=== PATIENT | female | born 1960 | race Caucasian/White ===

== ENCOUNTER 2016-06-18 19:25 | Observation (INO) | payer OTHER ==
[~2016-06-18] VITALS: Ht 170.2 cm; Wt 65.0 kg
[2016-06-18 20:12] LABS: HEMATOCRIT 31.1 % (36.0-46.0); MCH 30.3 PG (29.0-34.0); MCHC 33.4 G/DL (30.0-36.0); MCV 90.7 FL (83-99); MEAN PLAT.VOLUME 10.4 uM^3 (9.5-12.4); PLATELET COUNT 314 K/uL (156-360); RBC DIS.WIDTH-CV 13.3 % (11.8-14.6); RBC DIS.WIDTH-SD 44.4 % (39-53); RED BLOOD COUNT 3.43 M/uL (3.80-5.20); WHITE BLOOD COUNT 11.2 K/uL (4.1-10.2)
[2016-06-18 20:28] LABS: CHLORIDE 104 mEq/L (99-109); POTASSIUM 2.7 mEq/L (3.7-5.4); SODIUM 138 mEq/L (136-147)
[2016-06-18 20:30] LABS: GLUCOSE 100 mg/dL (70-99)
[2016-06-18 20:31] LABS: ANION GAP 12 MEQ/L (2-14)
[2016-06-18 20:33] LABS: GFR ESTIMATE (CALCULATED) > 59 mL/min/
[2016-06-18 20:34] LABS: UREA NITROGEN (BUN) 5 mg/dL (9-23)
[2016-06-18 20:36] LABS: TROP-I INTERPRETATION NEGATIVE; TROPONIN-I < 0.01 ng/mL (0.0-0.30)
[2016-06-18] MEDS ORDERED: PRINIVIL10 MG PO (21:19)
[2016-06-18] MEDS ORDERED: OMEPRAZOLE40 M1 PO (21:20)
[2016-06-18] MEDS ORDERED: TOPIRAMATE25 MG PO (21:20)
[2016-06-18] MEDS ORDERED: LIPITOR80 MG PO (21:20)
[2016-06-18] MEDS ORDERED: PLAVIX75 MG PO (21:20)
[2016-06-18] MEDS ORDERED: RANITIDINE HCL150 MG PO (21:20)
[2016-06-18] MEDS ORDERED: LEXAPRO20 MG PO (21:21)
[2016-06-18] MEDS ORDERED: LO-DOSE ASPIRIN81 M2 PO (21:21)
[2016-06-19 01:04] VITALS: BP 156/71
[2016-06-19 03:38] LABS: TROP-I INTERPRETATION NEGATIVE; TROPONIN-I < 0.01 ng/mL (0.0-0.30)
[2016-06-19 04:24] VITALS: BP 112/70
[2016-06-19 06:07] LABS: HEMATOCRIT 28.7 % (36.0-46.0); MCH 30.3 PG (29.0-34.0); MCHC 32.8 G/DL (30.0-36.0); MCV 92.6 FL (83-99); MEAN PLAT.VOLUME 10.8 uM^3 (9.5-12.4); PLATELET COUNT 285 K/uL (156-360); RBC DIS.WIDTH-CV 13.5 % (11.8-14.6); RBC DIS.WIDTH-SD 45.4 % (39-53); WHITE BLOOD COUNT 8.1 K/uL (4.1-10.2)
[2016-06-19 06:28] LABS: ALKALINE PHOSPHATASE 88 IU/L (3-129); ANION GAP 12 MEQ/L (2-14); CHLORIDE 109 MEQ/L (99-109); GFR ESTIMATE (CALCULATED) > 59 mL/min/; GLUCOSE 88 mg/dL (70-99); HDL CHOLESTEROL 33 MG/DL (Desirable>=50); LDL CHOLESTEROL 42 mg/dL (Desirable<100); NON-HDL CHOLESTEROL 59 mg/dL (Desirable<160); POTASSIUM 2.8 MEQ/L (3.7-5.4); SAMPLE HEMOLYSIS CHECK 0; SAMPLE ICTERIC CHECK 0; SAMPLE LIPEMIA CHECK 0; SODIUM 143 MEQ/L (136-147); TOTAL BILIRUBIN 0.4 MG/DL (0.0-1.0); TOTAL CHOLESTEROL 92 mg/dL (Desirable<200); TRIGLYCERIDES 83 MG/DL (Normal: <150); UREA NITROGEN (BUN) 4 mg/dL (9-23)
[2016-06-19 07:49] VITALS: BP 98/53
[2016-06-19 09:27] LABS: TROP-I INTERPRETATION NEGATIVE; TROPONIN-I < 0.01 ng/mL (0.0-0.30)
[2016-06-19 11:10] VITALS: BP 115/67
[2016-06-19] MEDS ORDERED: NICOTINE PATCH1 EAC2 TD (15:35)
[2016-06-19] MEDS ORDERED: DOXYCYCLINE HY100 M3 PO (15:35)
[2016-06-19] MEDS ORDERED: POTASSIUM20 MEQ/11 PO (15:37)
[2016-06-19 15:39] VITALS: BP 146/90
[2016-06-19] MEDS ORDERED: TESSALON PERLE100 MG PO (15:40)
[2016-06-19 16:30] LABS: ANION GAP 10 MEQ/L (2-14); CHLORIDE 111 MEQ/L (99-109); GFR ESTIMATE (CALCULATED) > 59 mL/min/; GLUCOSE 82 mg/dL (70-99); POTASSIUM 3.1 MEQ/L (3.7-5.4); SAMPLE HEMOLYSIS CHECK 0; SAMPLE ICTERIC CHECK 0; SAMPLE LIPEMIA CHECK 0; SODIUM 142 MEQ/L (136-147); UREA NITROGEN (BUN) 4 mg/dL (9-23)
[2016-06-20 06:56] LABS: Estimated Average Glucose 114 mg/dL (70-123); HEMOGLOBIN A1c (GLYCOHEMOGLOB) 5.6 % HGB (Below 5.7)
== END 2016-06-19 19:19 | disposition home or self-care (01) ==
LOC: EME 19:25 → EDOF 23:00 → 5WEST 23:53
PROVIDERS: Internal Medicine; Nurse Practitioner Adult Health
DX: R07.89 Other chest pain (principal); J20.9 Acute bronchitis, unspecified; E87.6 Hypokalemia; R11.2 Nausea with vomiting, unspecified; R19.7 Diarrhea, unspecified; I27.2 Other secondary pulmonary hypertension; I10 Essential (primary) hypertension; I25.10 Atherosclerotic heart disease of native coronary artery without angina pectoris; I25.2 Old myocardial infarction; Z95.5 Presence of coronary angioplasty implant and graft; E78.5 Hyperlipidemia, unspecified; F32.9 Major depressive disorder, single episode, unspecified; K21.9 Gastro-esophageal reflux disease without esophagitis; D64.9 Anemia, unspecified; F17.210 Nicotine dependence, cigarettes, uncomplicated
CPT/HCPCS: 71020; 80048; 80048 91; 80053; 80061; 83036; 83735; 83880; 84484; 85027; 93005; 94640; 99202; 99281; 99283; G0378; J1644; J3480; J7030